=== PATIENT | female | born 1930 | race Caucasian/White ===

== ENCOUNTER 2017-01-18 04:15 | Observation (INO) | payer OTHER, MEDICARE ==
[~2017-01-18] VITALS: Ht 162.6 cm; Wt 73.5 kg
[~2017-01-18 04:15] MED LIST: ADVIL200 MG PO; ATENOLOL50 MG PO; ATORVASTATIN CA10 MG PO; CELECOXIB200 MG PO; CITALOPRAM HBR20 MG PO; COUMADIN,JANTOVE1 MG PO; ELIQUIS5 MG PO; ENDOCET 5-3251 EACH PO; FEOSOL325 MG PO; HYDRALAZINE HCL50 MG PO; HYDROCODON-ACE1 EAC7 PO; IRON325 M1 PO; LEVOTHYROXINE75 MCG PO; LISINOPRIL-HCT1 EAC3 PO; LISINOPRIL20 MG PO; LOVENOX30 MG/0.3 SC; Levothroid,Synthroid PO; Lipitor PO; METHOCARBAMOL500 MG PO; MICROZIDE12.5 M1 PO; Osteo-Biflex,Flex-A- PO; PYRIDOXINE,VIT100 MG PO; SENOKOT S,PE1 TABLET PO; SYNTHROID100 MCG PO; TENORMIN100 MG PO; Tenormin PO; ULTRAM ER300 MG PO; ULTRAM50 MG PO; Vicodin,Lortab 5/500 PO; ZESTRIL10 MG PO; ZESTRIL20 MG PO; Zestoretic,Prinzide PO
[2017-01-18 05:33] LABS: EOSINOPHIL (%) 3.1 % (0-5); EOSINOPHIL COUNT 0.2 K/uL (0-0.3); HEMATOCRIT 35.1 % (36.0-46.0); IMMATURE GRANULOCYTE (%) 0.2 % (0.0-0.7); INSTRUMENT ABS NEUTROPHIL CT 3.9 K/uL; LYMPHOCYTE COUNT 1.4 K/uL (1.0-2.8); MCH 31.1 PG (29.0-34.0); MCHC 33.3 G/DL (30.0-36.0); MCV 93.4 FL (83-99); MEAN PLAT.VOLUME 9.1 uM^3 (9.5-12.4); MONOCYTE (%) 11.1 % (3-12); MONOCYTE COUNT 0.7 K/uL (0-0.8); NEUTROPHIL (%) 62.8 % (45-76); NEUTROPHIL COUNT 3.9 K/uL (1.8-6.4); PLATELET COUNT 308 K/uL (156-360); RBC DIS.WIDTH-CV 12.6 % (11.8-14.6); RBC DIS.WIDTH-SD 43.5 % (39-53); RED BLOOD COUNT 3.76 M/uL (3.80-5.20); WHITE BLOOD COUNT 6.1 K/uL (4.1-10.2)
[2017-01-18 05:46] LABS: CHLORIDE 106 mEq/L (99-109); INTER. NORMALIZED RATIO 1.1; PTT 31.5 (25-32); SODIUM 140 mEq/L (136-147)
[2017-01-18 05:47] LABS: MAGNESIUM 2.1 mg/dL (1.3-2.7)
[2017-01-18 05:48] LABS: GLUCOSE 109 mg/dL (70-99)
[2017-01-18 05:49] LABS: ANION GAP 10 MEQ/L (2-14)
[2017-01-18 05:52] LABS: GFR ESTIMATE (CALCULATED) 45 mL/min/
[2017-01-18 05:53] LABS: UREA NITROGEN (BUN) 27 mg/dL (9-23)
[2017-01-18 05:56] LABS: TROP-I INTERPRETATION NEGATIVE; TROPONIN-I < 0.01 ng/mL (0.0-0.30)
[2017-01-18 10:04] VITALS: BP 197/84
[2017-01-18] MEDS ORDERED: TYLENOL EXTRA500 MG PO (11:36)
[2017-01-18] MEDS ORDERED: ILEVRO1.7 ML LEFT EYE (11:36)
[2017-01-18] MEDS ORDERED: NORVASC5 MG PO (11:36)
[2017-01-18] MEDS ORDERED: PRED FORTE100 DROP/5 LEFT EYE (11:37)
[2017-01-18 12:31] VITALS: BP 163/81
[2017-01-18 12:56] LABS: TROP-I INTERPRETATION NEGATIVE; TROPONIN-I 0.02 ng/mL (0.0-0.30)
[2017-01-18 17:00] VITALS: BP 138/86
[2017-01-18 18:32] LABS: TROP-I INTERPRETATION NEGATIVE; TROPONIN-I 0.02 ng/mL (0.0-0.30)
[2017-01-18 19:03] VITALS: BP 103/57
[2017-01-19 00:29] VITALS: BP 140/68
[2017-01-19 04:23] VITALS: BP 132/78
[2017-01-19 07:06] LABS: HEMATOCRIT 35.5 % (36.0-46.0); MCHC 33.2 G/DL (30.0-36.0); MCV 93.2 FL (83-99); MEAN PLAT.VOLUME 9.3 uM^3 (9.5-12.4); PLATELET COUNT 300 K/uL (156-360); RBC DIS.WIDTH-SD 44.6 % (39-53); RED BLOOD COUNT 3.81 M/uL (3.80-5.20); WHITE BLOOD COUNT 5.8 K/uL (4.1-10.2)
[2017-01-19 07:36] LABS: ANION GAP 9 MEQ/L (2-14); CHLORIDE 100 MEQ/L (99-109); GFR ESTIMATE (CALCULATED) 45 mL/min/; GLUCOSE 98 mg/dL (70-99); POTASSIUM 3.4 MEQ/L (3.7-5.4); SAMPLE HEMOLYSIS CHECK 0; SAMPLE ICTERIC CHECK 0; SAMPLE LIPEMIA CHECK 0; SODIUM 137 MEQ/L (136-147); UREA NITROGEN (BUN) 26 mg/dL (9-23)
[2017-01-19 08:03] VITALS: BP 128/67
[2017-01-19] MEDS ORDERED: FUROSEMIDE20 MG PO (09:56)
== END 2017-01-19 11:18 | disposition home or self-care (01) ==
LOC: EME 04:15 → EDOF 07:19 → 5WEST 09:47
PROVIDERS: Emergency Medicine; Nurse Practitioner Adult Health
DX: R06.02 Shortness of breath (principal); I11.0 Hypertensive heart disease with heart failure; I50.9 Heart failure, unspecified; I48.0 Paroxysmal atrial fibrillation; E78.5 Hyperlipidemia, unspecified; Z79.82 Long term (current) use of aspirin; E03.9 Hypothyroidism, unspecified; K21.9 Gastro-esophageal reflux disease without esophagitis
CPT/HCPCS: 71010; 71275; 80048; 83735; 83880; 84484; 85025; 85027; 85610; 85730; 93005; 99281; 99285; G0378; J1644; J1940

== ENCOUNTER 2017-07-15 09:46 | Emergency (ER) | payer OTHER, MEDICARE ==
[~2017-07-15] VITALS: Ht 162.6 cm; Wt 76.4 kg
[~2017-07-15 09:46] MED LIST changes: +FUROSEMIDE20 MG PO; +ILEVRO1.7 ML LEFT EYE; +NORVASC5 MG PO; +PRED FORTE100 DROP/5 LEFT EYE; +TYLENOL EXTRA500 MG PO
[2017-07-15 11:26] LABS: HEMATOCRIT 32.7 % (36.0-46.0); MCH 30.9 PG (29.0-34.0); MCHC 33.3 G/DL (30.0-36.0); MCV 92.6 FL (83-99); MEAN PLAT.VOLUME 8.8 uM^3 (9.5-12.4); PLATELET COUNT 373 K/uL (156-360); RBC DIS.WIDTH-CV 12.9 % (11.8-14.6); RBC DIS.WIDTH-SD 43.8 % (39-53); RED BLOOD COUNT 3.53 M/uL (3.80-5.20); WHITE BLOOD COUNT 7.5 K/uL (4.1-10.2)
[2017-07-15 11:35] LABS: CHLORIDE 103 mEq/L (99-109); POTASSIUM 5.1 mEq/L (3.7-5.4); SODIUM 138 mEq/L (136-147)
[2017-07-15 11:37] LABS: GLUCOSE 111 mg/dL (70-99)
[2017-07-15 11:39] LABS: ANION GAP 10 MEQ/L (2-14); TOTAL BILIRUBIN 0.4 mg/dL (0.0-1.0)
[2017-07-15 11:41] LABS: ALKALINE PHOSPHATASE 93 IU/L (3-129); GFR ESTIMATE (CALCULATED) 50 mL/min/
[2017-07-15 11:42] LABS: UREA NITROGEN (BUN) 19 mg/dL (9-23)
[2017-07-15 11:44] LABS: LIPASE 13 U/L (1.0-51.0)
[2017-07-15 11:47] LABS: TROP-I INTERPRETATION NEGATIVE; TROPONIN-I < 0.01 ng/mL (0.0-0.30)
[2017-07-15 12:40] LABS: ADD MIUA? NO; BILIRUBIN NEGATIVE; BLOOD NEGATIVE; COLOR STRAW ((YELLOW)); GLUCOSE (STRIP) NEGATIVE; KETONES NEGATIVE; LEUKOCYTES NEGATIVE; NITRITE NEGATIVE; PROTEIN (STRIP) NEGATIVE; SPECIFIC GRAVITY 1.006 (1.000-1.030); UROBILINOGEN 0.2 MG/DL (0.2-1.0)
[2017-07-15 13:29] VITALS: BP 142/98
== END 2017-07-15 13:30 | disposition home or self-care (01) ==
LOC: EME 09:46
PROVIDERS: Physician Assistant
DX: R53.1 Weakness (principal); R42 Dizziness and giddiness; I10 Essential (primary) hypertension; G89.29 Other chronic pain; M25.569 Pain in unspecified knee; M54.9 Dorsalgia, unspecified; E07.9 Disorder of thyroid, unspecified; Z96.643 Presence of artificial hip joint, bilateral; Z96.652 Presence of left artificial knee joint; Z90.710 Acquired absence of both cervix and uterus
CPT/HCPCS: 71020; 80053; 81003; 83690; 84484; 85027; 93005; 99281; 99285

== ENCOUNTER 2018-01-28 16:40 | Observation (INO) | payer OTHER, MEDICARE ==
[~2018-01-28] VITALS: Ht 162.6 cm; Wt 76.6 kg
[~2018-01-28 16:40] MED LIST changes: -SYNTHROID100 MCG PO; +SYNTHROID88 MCG PO
[2018-01-28 17:26] LABS: HEMATOCRIT 34.1 % (36.0-46.0); HEMOGLOBIN 11.8 G/DL (11.9-15.5); MCH 32.3 PG (29.0-34.0); MCHC 34.6 G/DL (30.0-36.0); MCV 93.4 FL (83-99); PLATELET COUNT 215 K/uL (156-360); RBC DIS.WIDTH-CV 13.1 % (11.8-14.6); RBC DIS.WIDTH-SD 45.4 % (39-53); RED BLOOD COUNT 3.65 M/uL (3.80-5.20); WHITE BLOOD COUNT 5.3 K/uL (4.1-10.2)
[2018-01-28 17:34] LABS: CHLORIDE 104 mEq/L (99-109); POTASSIUM 4.3 mEq/L (3.7-5.4); SODIUM 138 mEq/L (136-147)
[2018-01-28 17:36] LABS: GLUCOSE 117 mg/dL (70-99)
[2018-01-28 17:40] LABS: CREATININE 1.4 mg/dL (0.6-1.3); GFR ESTIMATE (CALCULATED) 38 mL/min/
[2018-01-28 17:41] LABS: UREA NITROGEN (BUN) 33 mg/dL (9-23)
[2018-01-28 17:46] LABS: TROP-I INTERPRETATION NEGATIVE; TROPONIN-I 0.01 ng/mL (0.0-0.30)
[2018-01-28] MEDS ORDERED: HYDROCHLOROTH12.5 M3 PO (20:22)
[2018-01-28 20:41] LABS: THYROTROPIN (TSH) 0.67 MIU/L (0.4-5.5)
[2018-01-28 23:24] VITALS: BP 172/74
[2018-01-29 04:19] VITALS: BP 145/71
[2018-01-29 05:51] LABS: TROP-I INTERPRETATION NEGATIVE; TROPONIN-I 0.01 ng/mL (0.0-0.30)
[2018-01-29 05:57] LABS: HDL CHOLESTEROL 66 MG/DL (Desirable>=50); LDL CHOLESTEROL 67 mg/dL (Desirable<100); NON-HDL CHOLESTEROL 75 mg/dL (Desirable<160); TOTAL CHOLESTEROL 141 mg/dL (Desirable<200); TRIGLYCERIDES 41 MG/DL (Normal: <150)
[2018-01-29 09:00] VITALS: BP 172/81
[2018-01-29 11:03] LABS: CHLORIDE 102 MEQ/L (99-109); CREATININE 1.2 MG/DL (0.6-1.3); GFR ESTIMATE (CALCULATED) 45 mL/min/; POTASSIUM 4.3 MEQ/L (3.7-5.4); SODIUM 139 MEQ/L (136-147); UREA NITROGEN (BUN) 24 mg/dL (9-23)
[2018-01-29 11:04] LABS: GLUCOSE 81 mg/dL (70-99)
[2018-01-29 11:12] LABS: TROP-I INTERPRETATION NEGATIVE; TROPONIN-I 0.02 ng/mL (0.0-0.30)
[2018-01-29] MEDS ORDERED: NITROSTAT0.4 MG SL (11:17)
[2018-01-29] MEDS ORDERED: Tums,OsCal PO (11:17)
[2018-01-29 11:23] VITALS: BP 148/69
== END 2018-01-29 12:52 | disposition home or self-care (01) ==
LOC: EME 16:40 → 4SOUTH 21:05 → EDOF 21:05 → ENRESERV 21:11 → 4SOUTH 23:16 → ENPENDDIS 01-29 → 4SOUTH 01-29 12:52
PROVIDERS: Hospitalist; Physician Assistant Medical
DX: R07.9 Chest pain, unspecified (principal); I48.0 Paroxysmal atrial fibrillation; F41.9 Anxiety disorder, unspecified; I10 Essential (primary) hypertension; E78.5 Hyperlipidemia, unspecified; K21.9 Gastro-esophageal reflux disease without esophagitis; E03.9 Hypothyroidism, unspecified; G89.29 Other chronic pain; M54.16 Radiculopathy, lumbar region; D64.9 Anemia, unspecified; M19.90 Unspecified osteoarthritis, unspecified site; Z79.01 Long term (current) use of anticoagulants; Z96.643 Presence of artificial hip joint, bilateral; Z96.653 Presence of artificial knee joint, bilateral; Z90.710 Acquired absence of both cervix and uterus; Z88.5 Allergy status to narcotic agent
CPT/HCPCS: 71046; 80048; 80061; 84443; 84484; 85027; 93005; 99281; 99285; G0378